=== PATIENT | male | born 1980 | race Caucasian/White ===

== ENCOUNTER 2021-08-22 22:17 | Emergency (ER) | payer OTHER ==
[~2021-08-22] VITALS: Ht 172.7 cm; Wt 77.1 kg
[2021-08-22 22:28] VITALS: BP_SYST 131
--- NOTE | 2021-08-23 00:42 | NUR ---
Medicated w/ 800mg of motrin per MD orders. Will cont to monitor and observe for any adverse reaction. ER Dr. Heard at bedside examining patient.
[2021-08-23] MEDS ORDERED: IBUPROFEN 800 MG TABLET PO ONE (00:45)
--- NOTE | 2021-08-23 01:27 | NUR ---
No adverse reaction noted to ibuprofen. long leg splint applied to left leg. Dorsalis pedis pulse noted. Capillary refill <3 seconds. Patient has ability to move non-splinted digits. Has sensation present to affected site. Skin color within normal limits. Applied for pain management control.
[2021-08-23 01:30] VITALS: BP_SYST 125
--- NOTE | 2021-08-23 01:30 | NUR ---
Patient given written and verbal discharge instructions and verbalizes understanding. ER MD discussed with patient the results and treatment provided. Patient in stable condition. ID arm band removed. Patient educated on pain management and to follow up with PMD. Pain Scale 3. Opportunity for questions provided and answered. Medication side effect fact sheet provided.
== END 2021-08-23 01:30 | disposition home or self-care (01) ==
LOC: SED 22:17
DX: S82.832A Other fracture of upper and lower end of left fibula, initial encounter for closed fracture (principal); S93.402A Sprain of unspecified ligament of left ankle, initial encounter; V18.4XXA Pedal cycle driver injured in noncollision transport accident in traffic accident, initial encounter; Y93.89 Activity, other specified; Y92.89 Other specified places as the place of occurrence of the external cause; Y99.8 Other external cause status
CPT/HCPCS: 99283